=== PATIENT | male | born 1995 | race African-American/Black ===

== ENCOUNTER 2018-06-10 03:48 | Emergency (ER) | payer OTHER, SELFPAY | END 2018-06-10 04:22 | disposition home or self-care (01) | LOC: NAV ERS 03:48 | DX: R05 Cough (principal); R50.9 Fever, unspecified | CPT/HCPCS: 99281 ==

== ENCOUNTER 2018-06-12 10:59 | Emergency (ER) | payer OTHER ==
--- NOTE | 2018-06-12 13:35 | RAD ---
TWO VIEWS OF CHEST: DATE: 06/12/2018. COMPARISON: 03/29/2009. HISTORY: Cough. FINDINGS: There is no pneumothorax, pleural fluid, focal consolidation, or alveolar edema. Heart and mediastin al contour is unremarkable. IMPRESSION: No acute findings. POS: [facility]
== END 2018-06-12 12:26 | disposition home or self-care (01) ==
LOC: NAV ERS 10:59
DX: J20.9 Acute bronchitis, unspecified (principal)
CPT/HCPCS: 71046

== ENCOUNTER 2021-12-04 05:56 | Emergency (ER) | payer OTHER, SELFPAY ==
[2021-12-04] MEDS ORDERED: AMOXicillin 250 MG CAP ONE (06:25)
[2021-12-04] MEDS ORDERED: Ketorolac Tromethamine 60 MG/2 ML VIAL ONE (06:25)
== END 2021-12-04 06:49 | disposition home or self-care (01) ==
LOC: NAV ERS 05:56
DX: K02.9 Dental caries, unspecified (principal); K03.81 Cracked tooth
CPT/HCPCS: 96372; 99282; J1885

== ENCOUNTER 2022-09-26 22:24 | Emergency (ER) | payer SELFPAY ==
[2022-09-26] MEDS ORDERED: Cephalexin 250 MG CAP ONE (22:45)
== END 2022-09-26 23:00 | disposition home or self-care (01) ==
LOC: NAV ERS 22:24
DX: K02.9 Dental caries, unspecified (principal)
CPT/HCPCS: 99282